=== PATIENT | female | born 1985 | race Caucasian/White ===

== ENCOUNTER 2017-02-18 13:13 | Emergency (ER) | payer BC, OTHER ==
--- NOTE | 2017-02-18 13:48 | RAD ---
LEFT KNEE FOUR VIEWS: History: Injury to left knee with pain. FINDINGS: No evidence of fracture. No evidence of joint effusion. IMPRESSION: No acute finding. POS: [facility]
== END 2017-02-18 13:50 | disposition home or self-care (01) ==
LOC: SCSER 13:13
DX: S80.02XA Contusion of left knee, initial encounter (principal); V43.92XA Unspecified car occupant injured in collision with other type car in traffic accident, initial encounter; W22.19XA Striking against or struck by other automobile airbag, initial encounter

== ENCOUNTER 2018-06-01 16:25 | Emergency (ER) | payer OTHER ==
[2018-06-01] MEDS ORDERED: Ibuprofen 800 MG TAB ONE (16:44)
[2018-06-01] MEDS ORDERED: HYDROcodone/Acetaminophen 5/325 mg Tablet ONE (16:44)
--- NOTE | 2018-06-01 17:31 | RAD ---
LEFT HAND RADIOGRAPHS THREE VIEWS: 06/01/18 PROVIDED CLINICAL HISTORY: Left hand pain status post injury. FINDINGS: There is no evidence for fracture or other acute osseous abnormality. If there is persistent clinical concern, conservative management and followup imaging are advised. IMPRESSION: As above. POS: [email or web address]
== END 2018-06-01 17:41 | disposition home or self-care (01) ==
LOC: SCSER 16:25
DX: S60.222A Contusion of left hand, initial encounter (principal); Z79.899 Other long term (current) drug therapy; W23.0XXA Caught, crushed, jammed, or pinched between moving objects, initial encounter